=== PATIENT | female | born 1995 | race African-American/Black ===

== ENCOUNTER 2018-11-01 16:25 | Emergency (ER) | payer SELFPAY ==
[~2018-11-01 16:25] MED LIST: ISOVUE-370 76%-LOCM 1 ML ONE
--- NOTE | 2018-11-01 17:26 | RAD ---
Exam: Chest one view HISTORY:Pneumonia. Fever. Comparison: 04/10/2013 FINDINGS: Cardiac silhouette: Normal Pulmonary vessels: Normal Costophrenic angles: Clear LUNGS: No masses or consolidation. Pneumothorax: None Osseous abnormalities: None IMPRESSION: No acute cardiopulmonary process.
[2018-11-01] MEDS ORDERED: Ketorolac Tromethamine 30 MG/ML VIAL ONE (17:27)
[2018-11-01 17:58] LABS: #Lymphocytes 1.2 thou/uL (1.20-3.40); #Monocytes 0.7 thou/uL (0.11-0.59); %Basophils 0.2 % (0.0-1.0); %Eosinophils 0.5 % (0.0-10.0); %Lymphocytes 13.8 % (21.0-51.0); %Monocytes 7.4 % (0.0-10.0); %Neutrophils 78.1 % (42.0-75.0); Hemoglobin 13.9 g/dL (12.0-16.0); Mean Corpuscular HGB CONC 34.1 g/dL (32.0-36.0); Mean Corpuscular Hemoglobin 30.7 pg (27.0-31.0); Mean Platelet Volume 8.7 fL (7.4-10.4); Platelet Count 140 thou/uL (130-400); RBC Distribution Width 11.6 % (11.5-14.5); Red Blood Cell (RBC) Count 4.55 mill/uL (4.20-5.40)
[2018-11-01 18:19] LABS: ALT (SGPT) 20 U/L (8-55); AST (SGOT) 22 U/L (5-34); Albumin 4.5 g/dL (3.5-5.0); Alkaline Phosphatase 66 U/L (40-150); Anion Gap 13 mmol/L (10-20); BUN (Urea Nitrogen) 8 mg/dL (7.0-18.7); Bilirubin, Total 1.4 mg/dL (0.2-1.2); CK (CPK) 71 U/L (29-168); Calc. Creatinine Clearance 0 mL/min (70-130); Calcium 9.5 mg/dL (7.8-10.44); Carbon Dioxide 21 mmol/L (22-29); Chloride 103 mmol/L (98-107); Estimated GFR-MDRD Greater than 90; Globulin 3.8 g/dL (2.4-3.5); Glucose 81 mg/dL (70-105); Lipase 29 U/L (8-78); Potassium 3.4 mmol/L (3.5-5.1); Protein, Total 8.3 g/dL (6.0-8.3); Sodium 134 mmol/L (136-145)
[2018-11-01] MEDS ORDERED: Acetaminophen 500 MG TAB ONE (20:47)
--- NOTE | 2018-11-01 20:59 | CT ---
EXAM: CT ABDOMEN AND PELVIS HISTORY: Generalized malaise x2 days. Fever. Abdominal pain. Nausea. COMPARISON: None. Procedure: Multiple contiguous axial images were obtained and a CT of the abdomen and pelvis with IV contrast. C oronal reformats were performed. FINDINGS: Lower Chest: within normal limits. Vessels: Normal caliber aorta. Heart: Normal heart size Abdomen: Portal vein:Patent Gallbladder: Contracted, likely due to a nonfasting state Liver: Trace amount of perihepatic fluid. Appropriate enhancement of the liver parenchyma. Pancreas: within normal limits. Spleen: Appropriate enhancement. A small amount of perisplenic fluid is present. Adrenals: within normal limits. Kidneys: Symmetric enhancement. No obstructive uropathy. Peritoneum: Limited evaluation due to decreased visceral fat. No obvious mass, lymphadenopathy, or fr ee air. Trace amount of fluid in the left and right paracolic gutter. Bowel: Limited evaluation due to technique. No evidence of high-grade mall bowel obstruction. Ileocec al junction appears to be normal. Normal caliber appendix. Scattered fecal material in a nondistended, nondilated colon. Mesentery and Retroperitoneum: No enlarged mesenteric or retroperitoneal lymph nodes. Abdominal Wall: within normal limits. Pelvis: Reproductive Organs: Uterus and left adnexa is unremarkable. There is a hypodensity, likely right adn exal in origin measuring 3.6 x 3.1 cm with an attenuation coefficient of 19 Hounsfield units. A complex right ovarian cyst is favored Pelvis: There is free fluid in the pelvis, slightly complex Bladder: Moderately distended. Consider encouraging spontaneous voiding. Bones: within normal limits. IMPRESSION: 1. Nonspecific perihepatic and perisplenic fluid. Trace amount of fluid in both paracolic gutters. 2. Distended urinary bladder. Encourage spontaneous voiding. 3. Complex fluid in the pelvis of uncertain etiology. There is a hypodensity in the right adnexa as d escribed above. Correlation with pelvic ultrasound is recommended
[2018-11-01] MEDS ORDERED: cefTRIAXone\\ROCEPHIN 250 MG VIAL ONE (23:01)
[2018-11-01] MEDS ORDERED: Lidocaine 1% PF 5 ML VIAL ONE (23:01)
[2018-11-01 23:08] LABS: Bilirubin Negative (Negative); Blood, Urine Negative (Negative); Glucose, Urine (Dipstick) Negative (Negative); Leukocyte Trace (Negative); Nitrite Negative (Negative); Pregnancy Test - Urine (BHCG) Negative (Negative); Pregu Control Background? CLEAR/WHITE (CLR/WHITE); Pregu Control Bar Appear? YES (CONTROL BAR); Protein, Urine (Dipstick) Negative (Neg-Trace); Specific Gravity 1.054 (1.002-1.036)
[2018-11-01 23:09] LABS: Bacteria/HPF Rare-Few HPF (None Seen); RBC/HPF 0-3 HPF (0-3); Squamous Epithelial 0-3 HPF (0-3)
--- NOTE | 2018-11-01 23:48 | ULT ---
Transabdominal pelvic ultrasound HISTORY: Possible right ovarian cyst Comparison none TECHNIQUE: Transabdominal imaging of the pelvis performed. Ovaries are interrogated with grayscale, c olor flow, Doppler imaging and spectral waveform analysis FINDINGS: Uterus is identified measuring 8.0 x 4.7 x 5.4 cm. Thickening homogeneous endometrium measuring 1.1 c m. Left ovary has a normal cortical echotexture, measuring 3.7 x 1.9 x 2.5 cm. Complex echotexture focus in the right ovary measuring 2.7 x 2.3 x 2.7 cm. Overall the right ovary me asures 4.8 x 4.1 x 3.2 cm. There is evidence of free fluid in the pelvis. Ovarian Doppler: Vascular flow to the left and right ovary IMPRESSION: 1. Mixed echotexture focus in the right adnexa likely representing a complex right ovarian cyst. Foll ow-up ultrasound in 8 weeks is recommended to ensure resolution. 2. Moderate amount of free fluid in the pelvis. Correlate clinically. 3. Homogeneous thickened endometrium. Correlate for phase of menstrual cycle.
[2018-11-02] MEDS ORDERED: cefTRIAXone\\ROCEPHIN 500 MG VIAL ONE (00:17)
[2018-11-02] MEDS ORDERED: cefTRIAXone\\ROCEPHIN 250 MG VIAL ONE (00:17)
[2018-11-02] MEDS ORDERED: metroNIDAZOLE 250 MG TAB ONE (00:17)
[2018-11-02] MEDS ORDERED: Doxycycline 100 MG CAP PO SCH (00:30)
--- NOTE | 2018-11-02 00:58 | PDOC.EVN ---
Event Note - Event Note Event Note: S: This is a 22 yo F with no significant PMH coming with chief complaint of muscle aches and bloating going on for 2 days. She states that she was having muscle aches in her neck and felt like her stomach was "full of gas." She took her temp at home and noted it to be 103. She denies cough, N/V, vaginal bleeding, or discharge. She states she ahs not had intercourse in over a year. Denies burning with urination or blood in the urine. Her LMP was 10/12, her periods are regular and usual last about 5 days. At time of exam patient states she is having no pain at all. After tylenol and toradol in ED her pain is totally resolved. O: BP 116/68 P81 T98.9 R 16 98 on RA 49kg General: NAD, alert and oriented x3 HEENT: EOMI, normal sclera Neck: Supple. Full ROM. Heart/Cardiovascular System: RRR, Cap refill < 3 seconds, no rub, no murmur Lungs/Respiratory System: clear to auscultation bilaterally. No increased work of breathing. Room air. Abdomen/Gastro-Intestinal System: no abdominal tenderness, normal bowel sounds Extremities: Warm extremities. No cyanosis or edema. Neuro: No gross deficits appreciated Psychiatry: Awake, Alert and cooperative with exam Skin: No lesions, rashes Musculoskeletal: Full ROM Pelvic: bimanual exam shows mild CMT, no obvious masses Pelvic US shows unilateral complex ovarian cyst, moderate free fluid in pelvis A/P: # Ruptured hemorrhagic cyst - based on LMP and exam ruptured hemorrhagic cyst is most likely source of US findings - PID unlikely based on WBC 9.0, afebrile in ED. TOA would most likely be bilateral - GC/CT, blood cx, urine cx taken - patient to go home with doxycycline, flaggyl for 7 days - discussed return precautions including worsening pain, N/V, or recurrence of fever. Patient in understanding, agrees with plan Addendum - Attending - Attending Attestation Date/Time: 11/02/18 0116 I personally evaluated the patient and discussed the management with Dr. Pemberton. 22 yo BF c/o diffuse abdominal pain. Last sex in 2018. No fever in ER, WBC=9. USG most c/w hemorrhagic cyst, TOA unlikely. Will empirically cover with doxycycline and Flagyl PO. Cultures pending. OK to go home with precautions. I agree with the History, Examination, Assessment and Plan documented above with any addition or exceptions noted.
[2018-11-05 01:09] LABS: Chlamydia by PCR Not Detected (NotDetected); GC by PCR Not Detected (NotDetected)
== END 2018-11-02 01:01 | disposition home or self-care (01) ==
LOC: ERS 16:25
DX: N73.9 Female pelvic inflammatory disease, unspecified (principal)
CPT/HCPCS: 36415; 71045; 74177; 76856; 80053; 81003; 81015; 81025; 82550; 83690; 85025; 87040; 87086; 87480; 87491; 87510; 87591; 87660; 96361; 96365; 96372; 96375; J0696; J1885; J2001; Q9966

== ENCOUNTER 2020-04-06 16:15 | Emergency (ER) | payer OTHER ==
[2020-04-06 20:04] LABS: BHCG - Serum Negative (NEGATIVE); Pregs Control Background? CLEAR/WHITE (CLR/WHITE); Pregs Control Bar Appear? YES (CONTROL BAR)
[2020-04-06 20:52] LABS: Bacteria/HPF None Seen HPF (None Seen); Bilirubin Negative (Negative); Blood, Urine Negative (Negative); Clarity Clear (Clear); Glucose, Urine (Dipstick) Normal (Negative); Ketone, Urine 20 mg/dL (Negative); Leukocyte Negative Leu/uL (Negative); Nitrite Negative (Negative); Protein, Urine (Dipstick) 70 mg/dL (Neg-Trace); RBC/HPF 0-3 HPF (0-3); Specific Gravity, Urine 1.018 (1.002-1.036); Squamous Epithelial 0-3 HPF (0-3); Urobilinogen Normal mg/dL (Less than 2); WBC/HPF 0-3 HPF (0-3); pH, Urine 6.5 (5.0-9.0)
[2020-04-06 21:07] LABS: Troponin I Less than 0.010 ng/mL (< 0.028)
[2020-04-06 21:08] LABS: ALT (SGPT) 9 U/L (8-55); AST (SGOT) 13 U/L (5-34); Albumin 4.4 g/dL (3.5-5.0); Alkaline Phosphatase 48 U/L (40-110); Anion Gap 16 mmol/L (10-20); BUN (Urea Nitrogen) 8 mg/dL (7.0-18.7); Bilirubin, Total 1.5 mg/dL (0.2-1.2); Calc. Creatinine Clearance 0 mL/min (70-130); Calcium 8.9 mg/dL (7.8-10.44); Carbon Dioxide 22 mmol/L (22-29); Chloride 103 mmol/L (98-107); Globulin 3.4 g/dL (2.4-3.5); Glucose 136 mg/dL (70-105); Potassium 3.7 mmol/L (3.5-5.1); Protein, Total 7.8 g/dL (6.0-8.3); Sodium 137 mmol/L (136-145)
[2020-04-06 23:06] LABS: #Eosinphils 0.1 thou/uL (0.0-0.7); #Lymphocytes 1.8 thou/uL (1.20-3.40); #Monocytes 0.5 thou/uL (0.11-0.59); #Neutrophils 4.1 thou/uL (1.40-6.50); %Basophils 0.2 % (0.0-1.0); %Eosinophils 1.5 % (0.0-10.0); %Monocytes 6.9 % (0.0-10.0); %Neutrophils 63.3 % (42.0-75.0); Hemoglobin 13.3 g/dL (12.0-16.0); Mean Corpuscular HGB CONC 33.7 g/dL (32.0-36.0); Mean Corpuscular Hemoglobin 31.1 pg (27.0-31.0); Mean Corpuscular Volume 92.4 fL (78.0-98.0); Mean Platelet Volume 9.2 fL (7.4-10.4); Platelet Count 156 thou/uL (130-400); RBC Distribution Width 11.8 % (11.5-14.5); Red Blood Cell (RBC) Count 4.28 mill/uL (4.20-5.40); White Blood Cell (WBC) Count 6.5 thou/uL (4.8-10.8)
== END 2020-04-06 18:26 | disposition home or self-care (01) ==
LOC: ERS 16:15
DX: G40.909 Epilepsy, unspecified, not intractable, without status epilepticus (principal)
CPT/HCPCS: 80053; 81001; 84484; 84703; 85025; 93005

== ENCOUNTER 2024-04-17 21:16 | Emergency (ER) | payer OTHER ==
[2024-04-17 22:01] LABS: #Basophils 0.03 10x3/uL (0.0-0.2); %Basophils 0.4 % (0.0-1.0); %Lymphocytes 35.2 % (21.0-51.0); Hematocrit 37.9 % (36.0-47.0); Mean Corpuscular HGB CONC 34.3 g/dL (32.0-36.0); Mean Corpuscular Hemoglobin 29.4 pg (27.0-31.0); Mean Corpuscular Volume 85.7 fL (78.0-98.0); Mean Platelet Volume 11.1 fL (7.4-10.4); Platelet Count 221 10x3/uL (130-400); RBC Distribution Width 13.1 % (11.5-14.5); Red Blood Cell (RBC) Count 4.42 mill/uL (4.20-5.40)
[2024-04-17 22:11] LABS: Bacteria/HPF 1+ HPF (None Seen); Bilirubin Negative (Negative); Blood, Urine 3+ (Negative); CAUTI Indications for Culture Pelvic or flank pain; Clarity Clear (Clear); Glucose, Urine (Dipstick) Normal (Negative); Ketone, Urine Negative (Negative); Leukocyte Negative Leu/uL (Negative); Nitrite Negative (Negative); Protein, Urine (Dipstick) Negative (Neg-Trace); RBC/HPF 0-3 HPF (0-3); Specific Gravity, Urine 1.003 (1.002-1.036); Squamous Epithelial None Seen HPF (0-3); Urobilinogen Normal mg/dL (Less than 2); WBC/HPF 0-3 HPF (0-3); pH, Urine 7.5 (5.0-9.0)
[2024-04-17 22:13] LABS: Urine Culture Reflex No No
[2024-04-17 22:23] LABS: ALT (SGPT) 18 U/L (8-55); AST (SGOT) 19 U/L (5-34); Albumin 4.1 g/dL (3.5-5.0); Alkaline Phosphatase 50 U/L (40-110); Anion Gap 11 mmol/L (10-20); BUN (Urea Nitrogen) 8 mg/dL (7.0-18.7); Bilirubin, Total 0.7 mg/dL (0.2-1.2); Calc. Creatinine Clearance 0 mL/min (70-130); Calcium 9.3 mg/dL (7.8-10.44); Carbon Dioxide 26 mmol/L (22-29); Chloride 107 mmol/L (98-107); Estimated GFR 100; Globulin 4.1 g/dL (2.4-3.5); Glucose 93 mg/dL (70-105); Potassium 3.6 mmol/L (3.5-5.1); Protein, Total 8.2 g/dL (6.0-8.3); Sodium 140 mmol/L (136-145)
== END 2024-04-18 00:06 | disposition home or self-care (01) ==
LOC: ERS 21:16
DX: O20.0 Threatened abortion (principal); Z3A.00 Weeks of gestation of pregnancy not specified
CPT/HCPCS: 36415; 76856; 80053; 81001; 84702; 85025; 86900; 86901